=== PATIENT | female | born 1955 | race Two or more races ===

== ENCOUNTER → 2024-08-09 | Outpatient (CLI) | payer MEDICARE, MEDICAID, SELFPAY ==
[2024-08-09 08:48] LABS: Glucose Estimated Average 146 mg/dL (80-131); Hemoglobin A1C 6.7 % Hgb (4.8-6.0)
[2024-08-09 08:54] LABS: Alanine Aminotransferase 31 U/L (10-49); Albumin, Serum 4.2 gm/dL (3.4-4.8); Albumin/Globulin Ratio 1.4 (1.2-2.2); Alkaline Phosphatase 101 U/L (46-116); Anion Gap 11 (7-16); Aspartate Amino Transferase 32 U/L (0-34); BUN/Creatinine Ratio 32 Ratio (12-20); Bilirubin,Total 0.6 mg/dL (0.3-1.2); Blood Urea Nitrogen 19 mg/dL (9-23); Calcium 9.6 mg/dL (8.3-10.6); Calcium (Corrected) 9.6 mg/dL (8.5-10.1); Carbon Dioxide 24.8 mMol/L (20.0-31.0); Cardiac Risk Estimate 3.9 RATIO (3.7-5.6); Chloride 105 mMol/L (98-107); Cholesterol 212 mg/dL (132-200); Creatinine (Component) 0.6 mg/dL (0.6-1.3); Globulin 2.9 gm/dL (2.3-3.5); Glucose 133 mg/dL (74-106); HDL Cholesterol 54 mg/dL (40-60); LDL Cholesterol,Calculated 121 mg/dL (0-130); Osmolality,Calculated 285 (275-295); Potassium 3.7 mMol/L (3.4-5.1); Sodium 141 mMol/L (136-145); Total Protein 7.1 gm/dL (5.7-8.2); Triglycerides 184 mg/dL (30-150); eGFR > 60 See Note
== END | disposition home or self-care (01) ==
PROVIDERS: PCP Internal Medicine; Referring Provider Internal Medicine; Visit Provider Internal Medicine
DX: I10 Essential (primary) hypertension (principal); E78.5 Hyperlipidemia, unspecified
CPT/HCPCS: 36415; 80053; 80061; 83036

== ENCOUNTER → 2024-11-09 | Outpatient (CLI) | payer MEDICARE, MEDICAID, SELFPAY ==
--- NOTE | 2024-11-09 09:45 | XR_ITS ---
Examination: Screening digital mammography, bilateral Computer aided detection 3-D breast Tomosynthesis, bilateral Date and time of exam: November 09, 2024 0923 hours Compared to mammograms dating to April 29, 2014 Indication: Screening Technique: Nonmagnified MLO, CC views of the breasts to been obtained, reconstructed from 3-D Tomosynthesis images. R2 computer aided detection program utilized for evaluation of suspicious masses and/or abnormal calcifications. 3-D Tomosynthesis images obtained. Findings: The breasts are heterogeneously dense, which may obscure small masses Numerous bilateral calcifications. 12 mm nodule with spiculated margins inner upper left breast Impression: BI-RADS Category 0: Incomplete: Need additional imaging evaluation 12 mm nodule with spiculated margins inner upper left breast, recommend follow-up spot tomographic views of this nodule as well as bilateral breast sonography to complete the workup
== END | disposition home or self-care (01) ==
PROVIDERS: PCP Internal Medicine; Referring Provider Internal Medicine; Visit Provider Internal Medicine
DX: Z12.31 Encounter for screening mammogram for malignant neoplasm of breast (principal); R92.8 Other abnormal and inconclusive findings on diagnostic imaging of breast; N63.22 Unspecified lump in the left breast, upper inner quadrant
CPT/HCPCS: 77063; 77067

== ENCOUNTER → 2024-11-30 | Outpatient (CLI) | payer MEDICARE, MEDICAID, SELFPAY ==
--- NOTE | 2024-11-30 10:00 | XR_ITS ---
Examination: Breast ultrasound complete, bilateral Date and time of exam: 11/30/2024 0949 hours INDICATIONS: Mammogram November 09, 2024 12 mm nodule spiculated margins inner upper left breast Technique: Real-time grayscale ultrasonographic imaging bilateral breasts, including all 4 quadrants as well as nipple retroareolar and axillary regions. Findings: Sonographic images right breast 4:00 cyst 5 x 5 mm 9:00 cyst 4 x 4 millimeter No solid nodules Sonographic images left breast 2:00 cyst 5 x 5 mm 3:00 calcification 3 mm 7:00 nodule indistinct margins, taller than wide, with shadowing, 9 x 8 x 13 mm IMPRESSION: BI-RADS Category 4: Suspicious for malignancy Suspicious mass 7:00 position left breast, biopsy is needed to exclude breast carcinoma, this mass is amenable to ultrasound-guided breast biopsy for diagnosis
--- NOTE | 2024-11-30 11:00 | XR_ITS ---
Examination: Diagnostic digital mammography, unilateral, LEFT Computer aided detection 3-D breast Tomosynthesis, unilateral Date and time of exam: November 30, 2024 1012 hours INDICATIONS: Mammogram November 09, 2024 12 mm nodule with spiculated margins inner left breast on the on the CC view Technique: Nonmagnified MLO, CC views of the left breast have been obtained, reconstructed from 3-D Tomosynthesis images. R2 computer aided detection program utilized for evaluation of suspicious masses and/or abnormal calcifications. 3-D Tomosynthesis images obtained. Findings: The breast is heterogeneously dense, which may obscure small masses Spiculated mass is confirmed on the spot compression CC view inner left breast, best depicted on the left breast sonogram today, 7:00 nodule taller than wide, 9 x 8 x 13 mm Impression: BI-RADS category 4: Suspicious for malignancy Suspicious mass 7:00 position left breast, best depicted on the left breast sonogram report today, biopsy is needed to exclude breast carcinoma, this mass is amenable to ultrasound-guided breast biopsy for diagnosis
== END | disposition home or self-care (01) ==
LOC: CDIM 09:28
PROVIDERS: PCP Internal Medicine; Referring Provider Internal Medicine; Visit Provider Internal Medicine
DX: N63.24 Unspecified lump in the left breast, lower inner quadrant (principal); N60.11 Diffuse cystic mastopathy of right breast; N60.02 Solitary cyst of left breast; N64.89 Other specified disorders of breast
CPT/HCPCS: 76641; 77061; 77065; G0279

== ENCOUNTER → 2024-12-11 | Outpatient (CLI) | payer MEDICARE, MEDICAID, SELFPAY ==
[2024-12-11 08:22] LABS: Collection Type, Urine Catheter
[2024-12-11 09:01] LABS: Basophils % (Auto) 1 % (0-2.5); Eosinophils # (Auto) 0.1 Thou/mm3 (0.0-0.5); Eosinophils % (Auto) 2 % (0-10); Hematocrit 39.1 % (36.0-46.0); Hemoglobin 13.9 g/dL (12.0-16.0); Immature Granulocytes % (Auto) 0 % (0-0); Immature Granulocytes Auto 0.01 Thou/mm3 (0.00-0.00); Lymphocytes # (Auto) 1.9 Thou/mm3 (1.0-4.8); Lymphocytes % (Auto) 32 % (10-50); Mean Corpuscular HGB Conc 35.5 g/dl (31.0-37.0); Mean Corpuscular Hemoglobin 30.5 pg (25.0-35.0); Mean Corpuscular Volume 86 fL (80-100); Monocytes # (Auto) 0.5 Thou/mm3 (0.0-0.8); Monocytes % (Auto) 9 % (0-12); Neutrophils # (Auto) 3.3 Thou/mm3 (1.8-7.7); Neutrophils % (Auto) 57 % (37-80); Nucleated Red Blood Cell % 0 /100 WBC (0); Platelet Count 255 Thou/mm3 (140-440); RDW Standard Deviation 38.7 fL (36.4-46.3); Red Blood Count 4.56 Miln/mm3 (4.00-5.20); White Blood Count 5.9 Thou/mm3 (3.6-11.0)
[2024-12-11 09:04] LABS: Bacteria,Urine Rare; Bilirubin,Urine Negative (Negative); Blood,Urine 3+ (Negative); Clarity,Urine Clear (Clear/Hazy); Color,Urine Yellow (Lt Yel-Yel); Glucose, Urine Negative (Negative); Ketones,Urine Negative (Negative); Leukocyte Esterase,Urine Positive (Negative); Nitrite,Urine Negative (Negative); Protein,Urine Trace (Neg - Trace); RBC,Urine 42 /hpf (0-3); Specific Gravity,Urine 1.024 (1.001-1.035); Squamous Epithelial Cell,Urine 2 /hpf (0-5); Urobilinogen,Urine Negative mg/dL (0.0-1.0); WBC,Urine 3 /hpf (0-5)
[2024-12-11 09:06] LABS: Glucose Estimated Average 117 mg/dL (80-131); Hemoglobin A1C 5.7 % Hgb (4.8-6.0)
[2024-12-11 09:12] LABS: Alanine Aminotransferase 23 U/L (10-49); Albumin, Serum 4.3 gm/dL (3.4-4.8); Albumin/Globulin Ratio 1.5 (1.2-2.2); Alkaline Phosphatase 98 U/L (46-116); Anion Gap 10 (7-16); Aspartate Amino Transferase 27 U/L (0-34); BUN/Creatinine Ratio 24 Ratio (12-20); Bilirubin,Total 0.7 mg/dL (0.3-1.2); Blood Urea Nitrogen 17 mg/dL (9-23); Calcium 9.4 mg/dL (8.3-10.6); Calcium (Corrected) 9.4 mg/dL (8.5-10.1); Carbon Dioxide 23.6 mMol/L (20.0-31.0); Cardiac Risk Estimate 3.3 RATIO (3.7-5.6); Chloride 106 mMol/L (98-107); Cholesterol 181 mg/dL (132-200); Creatinine (Component) 0.7 mg/dL (0.6-1.3); Globulin 2.9 gm/dL (2.3-3.5); Glucose 115 mg/dL (74-106); HDL Cholesterol 55 mg/dL (40-60); LDL Cholesterol,Calculated 100 mg/dL (0-130); Osmolality,Calculated 281 (275-295); Sodium 140 mMol/L (136-145); Total Protein 7.2 gm/dL (5.7-8.2); Triglycerides 128 mg/dL (30-150); eGFR > 60 See Note
[2024-12-11 09:23] LABS: Creatinine,Random Urine 128 mg/dL (30-125)
== END | disposition home or self-care (01) ==
PROVIDERS: PCP Internal Medicine; Referring Provider Internal Medicine; Visit Provider Internal Medicine
DX: E11.9 Type 2 diabetes mellitus without complications (principal); I10 Essential (primary) hypertension; E78.5 Hyperlipidemia, unspecified
CPT/HCPCS: 36415; 80053; 80061; 81001; 82570; 83036; 83735; 85025

== ENCOUNTER → 2025-01-15 | Outpatient (CLI) | payer MEDICARE, MEDICAID, SELFPAY ==
[2025-01-14 09:20] LABS: Basophils # (Auto) 0.0 Thou/mm3 (0.0-0.2); Basophils % (Auto) 1 % (0-2.5); Eosinophils # (Auto) 0.2 Thou/mm3 (0.0-0.5); Eosinophils % (Auto) 3 % (0-10); Hematocrit 38.7 % (36.0-46.0); Hemoglobin 13.2 g/dL (12.0-16.0); Immature Granulocytes Auto 0.01 Thou/mm3 (0.00-0.00); Lymphocytes # (Auto) 2.2 Thou/mm3 (1.0-4.8); Lymphocytes % (Auto) 37 % (10-50); Mean Corpuscular HGB Conc 34.1 g/dl (31.0-37.0); Mean Corpuscular Hemoglobin 30.4 pg (25.0-35.0); Mean Corpuscular Volume 89 fL (80-100); Monocytes # (Auto) 0.5 Thou/mm3 (0.0-0.8); Monocytes % (Auto) 9 % (0-12); Neutrophils # (Auto) 3.0 Thou/mm3 (1.8-7.7); Neutrophils % (Auto) 51 % (37-80); Nucleated Red Blood Cell # 0.00 Thou/mm3 (0.00-0.00); Nucleated Red Blood Cell % 0 /100 WBC (0); Platelet Count 275 Thou/mm3 (140-440); RDW Standard Deviation 40.7 fL (36.4-46.3); Red Blood Count 4.34 Miln/mm3 (4.00-5.20); White Blood Count 6.0 Thou/mm3 (3.6-11.0)
[2025-01-14 10:11] LABS: INR 1.0 (0.9-1.3); Partial Thromboplastin Time 26.2 Seconds (22.0-36.0); Prothrombin Time 10.9 Seconds (9.0-12.2)
--- NOTE | 2025-01-15 10:30 | XR_ITS ---
Examinations: Ultrasound-guided percutaneous breast biopsy, left breast 7:00 nodule Left breast sonography limited INDICATIONS: Left breast sonogram November 30, 2024 BI-RADS 4 suspicious nodule 7:00 position left breast. Exam date and time: January 15, 2025 1007 hours. Informed consent provided. Technique: A timeout was completed verifying correct patient, procedure, site, positioning, and special equipment if applicable Informed consent provided. The patient was placed in a supine position for the breast biopsy. Sonographic images of the breast were performed for localization of the suspicious nodule The patient's breast was prepped and draped in sterile fashion. Maximum sterile barrier technique, hand hygiene, ultrasound sterile technique 1% lidocaine was used to anesthetize the skin and breast adjacent to the suspicious nodule. Utilizing ultrasonographic guidance, 8 core biopsies were obtained of the suspicious nodule utilizing an 18-gauge BioPince needle. The specimens appears satisfactory. US guided breast biopsy marker placement. Estimated blood loss 3 cc. The patient tolerated the procedure well and there were no complications. Impression: Successful ultrasound-guided percutaneous breast biopsy, left breast 7:00 nodule. Ultrasound guided breast biopsy marker placement.
== END | disposition home or self-care (01) ==
LOC: SDIM 01-17 07:27
PROVIDERS: Radiology Diagnostic Radiology; PCP Internal Medicine; Referring Provider Internal Medicine; Visit Provider Internal Medicine
DX: C50.312 Malignant neoplasm of lower-inner quadrant of left female breast (principal); Z17.0 Estrogen receptor positive status [ER+]; Z17.21 Progesterone receptor positive status; Z01.812 Encounter for preprocedural laboratory examination
CPT/HCPCS: 19083; 36415; 85025; 85610; 85730; A4648

== ENCOUNTER 2025-01-23 09:40 | Outpatient (RCR) | payer MEDICARE, MEDICAID, SELFPAY ==
--- NOTE | 2025-01-28 02:46 | CTCFLWUP_ITS ---
Patient: LACHO ANDERSON : 1955 Page 2 of 3 FOLLOW UP NOTE DATE OF SERVICE: 01/23/2025 NAME: LACHO ANDERSON ACCOUNT: [id number] : 1955 AGE: 70 INTERVAL HISTORY: Patient is here to establish care for her newly diagnosed breast cancer. Patient had ultrasound followed with a same-day biopsy and diagnosed with invasive lobular carcinoma ER/AZ positive HER2 status is pending. Patient have come here to establish care ONCOLOGY HISTORY: DIAGNOSIS: Invasive lobular carcinoma DATE OF DIAGNOSIS: 01/15/2025 STAGE/TNM: Pending TREATMENT HISTORY: Care?Plan Start?Date Cycle Day Intent HISTORY OF PRESENT ILLNESS: 01/15/2025 left breast biopsy showed invasive lobular carcinoma largest focus 0.8 cm ER more than 90% AZ more than 20% HER2 results pending Patient have various medical problems including hypertension hematuria depression coronary artery disease OTHER MEDICAL HISTORY/CONDITIONS: ALLERGIES BRONCHITIS DIABETES CHEST PAIN GALLBLADDER GLAUCOMA HIGH BLOOD PRESSURE GALLBLADDER CATARACT RIGHT SIDE HYSTRECTOMY FAMILY HISTORY: Patient?denies?family?cancer?history. SOCIAL HISTORY: Occupational?History:?RETIRED Education?Level:?Completed something less than 8th grade Marital?Status:? 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 Arimidex - 1 mg 1 tab Daily Medications Last Reconciled by Eryn Harrington LVN on 01/24/2025 ALLERGIES: PENICILLAMINE REVIEW OF SYSTEMS: A complete 14-point review of systems was performed and is negative except as noted in interval history. PHYSICAL EXAMINATION: VITAL SIGNS: B/P?144/74, Height?63.75?inches Weight?175?lbs PAIN: 5 - Between moderate and severe pain ECOG Performance Status: 0 - Asymptomatic and fully active GENERAL APPEARANCE: Appears well, in no apparent distress, appropriately interactive. HEENT: Normocephalic, no temporal wasting, normal conjunctiva, no scleral icterus, normal hearing, lips without lesions, neck normal range of motion. CARDIOVASCULAR: Not assessed. PULMONARY: Normal respiratory effort, no respiratory distress or use of accessory muscles, speaking in full sentences, no tachypnea. EXTREMITIES: No pedal edema or cyanosis. SKIN: Normal skin appearance. NEUROLOGIC: Alert and oriented x4. PSHYCHIATRIC: Appropriate affect, mood normal, behavior normal, intact thought and speech. No palpable mass in breast LABORATORY DATA: I have personally reviewed and interpreted each of the patient?s relevant lab tests, abnormal findings are below: Date ASSESSMENT/PLAN: Invasive lobular carcinoma left breast Patient want conservative breast surgery and if possible with implant Already have appointment with Dr. Evan Yeager Oncotype DX Will refer to radiation oncology once patient has completed surgery Will start on antiendocrine therapy while awaiting results and surgical consult Will order MRI breast for surgical planning ORDERS: Order # Description [id number] + MD Follow Up 4 Week + CA 15-3 [id number] MRI + Breast + With W/O Contrast [id number] RETURN TO CLINIC: I reviewed the diagnosis, prognosis, and recommended treatment/procedure options with the patient (and/or their legal chemical sales representative), including the potential benefits, risks, side effects and alternative therapies. We also discussed the option of no treatment and the possibility of clinical trial participation, if applicable. All questions were addressed, and they demonstrated understanding. They provided informed consent to proceed with the proposed plan of care. BILLING AND COMPLIANCE: I reviewed external records from providers outside my specialty as summarized above. I spent a total of 50 minutes on this patient?s care on the day of their visit excluding time spent related to any billed procedures. This time includes time spent with the patient as well as time spent documenting in the medical record, reviewing patients records and tests, obtaining history, placing orders, communicating with other healthcare professionals, counseling the patient, family or caregiver, and/or care coordination for the diagnoses above. Electronically Signed by: Ced Baez MD T: 2:44 AM CC: PCP: Mikayla Aguilar Referring: Mikayla gAuilar This document was completed utilizing speech recognition software. Grammatical errors, random word insertions, pronoun errors, and incomplete sentences are an occasional consequence of this system due to software limitations, ambient noise, and hardware issues. Any formal questions or concerns about the content, text or information contained within the body of this dictation should be directly addressed to the provider for clarification.
== END 2025-02-17 23:59 | disposition home or self-care (01) ==
LOC: SCTC 09:40
PROVIDERS: PCP Internal Medicine; Referring Provider Internal Medicine; Visit Provider Internal Medicine Hematology & Oncology
DX: C50.312 Malignant neoplasm of lower-inner quadrant of left female breast (principal); Z17.0 Estrogen receptor positive status [ER+]; Z17.21 Progesterone receptor positive status
CPT/HCPCS: 99213; G0463

== ENCOUNTER → 2025-01-23 | Outpatient (CLI) | payer MEDICARE, MEDICAID, SELFPAY ==
[2025-01-23 13:48] LABS: CA 15-3 10.4 U/mL (<32.4)
== END | disposition home or self-care (01) ==
PROVIDERS: PCP Internal Medicine; Referring Provider Internal Medicine Hematology & Oncology; Visit Provider Internal Medicine Hematology & Oncology
DX: C50.912 Malignant neoplasm of unspecified site of left female breast (principal)
CPT/HCPCS: 36415; 86300

== ENCOUNTER → 2025-02-15 | Outpatient (CLI) | payer MEDICARE, MEDICAID, SELFPAY ==
[2025-02-15 09:34] LABS: Alanine Aminotransferase 24 U/L (10-49); Albumin, Serum 4.3 gm/dL (3.4-4.8); Albumin/Globulin Ratio 1.6 (1.2-2.2); Alkaline Phosphatase 97 U/L (46-116); Anion Gap 11 (7-16); Aspartate Amino Transferase 27 U/L (0-34); BUN/Creatinine Ratio 27 Ratio (12-20); Bilirubin,Total 0.6 mg/dL (0.3-1.2); Blood Urea Nitrogen 19 mg/dL (9-23); Calcium 10.1 mg/dL (8.3-10.6); Calcium (Corrected) 10.1 mg/dL (8.5-10.1); Carbon Dioxide 25.7 mMol/L (20.0-31.0); Cardiac Risk Estimate 3.7 RATIO (3.7-5.6); Chloride 106 mMol/L (98-107); Cholesterol 194 mg/dL (132-200); Creatinine (Component) 0.7 mg/dL (0.6-1.3); Globulin 2.7 gm/dL (2.3-3.5); Glucose 105 mg/dL (74-106); HDL Cholesterol 53 mg/dL (40-60); LDL Cholesterol,Calculated 113 mg/dL (0-130); Osmolality,Calculated 287 (275-295); Potassium 4.5 mMol/L (3.4-5.1); Sodium 143 mMol/L (136-145); Total Protein 7.0 gm/dL (5.7-8.2); Triglycerides 138 mg/dL (30-150); eGFR > 60 See Note
[2025-02-15 09:37] LABS: Basophils # (Auto) 0.0 Thou/mm3 (0.0-0.2); Basophils % (Auto) 1 % (0-2.5); Eosinophils # (Auto) 0.1 Thou/mm3 (0.0-0.5); Eosinophils % (Auto) 2 % (0-10); Hematocrit 40.1 % (36.0-46.0); Hemoglobin 13.7 g/dL (12.0-16.0); Immature Granulocytes Auto 0.01 Thou/mm3 (0.00-0.00); Lymphocytes # (Auto) 2.2 Thou/mm3 (1.0-4.8); Lymphocytes % (Auto) 40 % (10-50); Mean Corpuscular HGB Conc 34.2 g/dl (31.0-37.0); Mean Corpuscular Hemoglobin 30.5 pg (25.0-35.0); Mean Corpuscular Volume 89 fL (80-100); Monocytes # (Auto) 0.5 Thou/mm3 (0.0-0.8); Monocytes % (Auto) 9 % (0-12); Neutrophils # (Auto) 2.7 Thou/mm3 (1.8-7.7); Neutrophils % (Auto) 48 % (37-80); Nucleated Red Blood Cell # 0.00 Thou/mm3 (0.00-0.00); Nucleated Red Blood Cell % 0 /100 WBC (0); Platelet Count 243 Thou/mm3 (140-440); RDW Standard Deviation 39.8 fL (36.4-46.3); Red Blood Count 4.49 Miln/mm3 (4.00-5.20); White Blood Count 5.6 Thou/mm3 (3.6-11.0)
[2025-02-15 09:55] LABS: Glucose Estimated Average 131 mg/dL (80-131); Hemoglobin A1C 6.2 % Hgb (4.8-6.0)
[2025-02-15 10:43] LABS: Collection Type, Urine Clean Catch
[2025-02-15 11:38] LABS: Bilirubin,Urine Negative (Negative); Blood,Urine 3+ (Negative); Clarity,Urine Clear (Clear/Hazy); Color,Urine Yellow (Lt Yel-Yel); Creatinine MALB Rnd Ur 140 mg/dL (30-125); Glucose, Urine Negative (Negative); Ketones,Urine Negative (Negative); Leukocyte Esterase,Urine Positive (Negative); Microalbumin Creat Ratio 4 mg/gCrea (<30); Microalbumin, Random Urine 5 mg/L (0-300); Nitrite,Urine Negative (Negative); PH,Urine 6.5 (5.0-7.0); Protein,Urine Negative (Neg - Trace); RBC,Urine 165 /hpf (0-3); Specific Gravity,Urine 1.023 (1.001-1.035); Squamous Epithelial Cell,Urine 2 /hpf (0-5); Urobilinogen,Urine 4.0 mg/dL (0.0-1.0); WBC,Urine 3 /hpf (0-5)
== END | disposition home or self-care (01) ==
PROVIDERS: PCP Internal Medicine; Referring Provider Internal Medicine; Visit Provider Internal Medicine
DX: E11.9 Type 2 diabetes mellitus without complications (principal); I10 Essential (primary) hypertension; E78.5 Hyperlipidemia, unspecified
CPT/HCPCS: 36415; 80053; 80061; 81001; 82043; 82570; 83036; 85025

== ENCOUNTER → 2025-02-25 | Outpatient (CLI) | payer OTHER, SELFPAY ==
[2025-02-25 08:13] VITALS: BMI 30.7
[2025-02-25 10:31] LABS: Basophils # (Auto) 0.0 Thou/mm3 (0.0-0.2); Basophils % (Auto) 1 % (0-2.5); Eosinophils # (Auto) 0.1 Thou/mm3 (0.0-0.5); Eosinophils % (Auto) 3 % (0-10); Hematocrit 38.6 % (36.0-46.0); Hemoglobin 13.1 g/dL (12.0-16.0); Immature Granulocytes Auto 0.01 Thou/mm3 (0.00-0.00); Lymphocytes # (Auto) 2.1 Thou/mm3 (1.0-4.8); Lymphocytes % (Auto) 40 % (10-50); Mean Corpuscular HGB Conc 33.9 g/dl (31.0-37.0); Mean Corpuscular Hemoglobin 30.4 pg (25.0-35.0); Mean Corpuscular Volume 90 fL (80-100); Monocytes # (Auto) 0.8 Thou/mm3 (0.0-0.8); Monocytes % (Auto) 16 % (0-12); Neutrophils # (Auto) 2.2 Thou/mm3 (1.8-7.7); Neutrophils % (Auto) 41 % (37-80); Nucleated Red Blood Cell # 0.00 Thou/mm3 (0.00-0.00); Nucleated Red Blood Cell % 0 /100 WBC (0); Platelet Count 213 Thou/mm3 (140-440); RDW Standard Deviation 41.2 fL (36.4-46.3); Red Blood Count 4.31 Miln/mm3 (4.00-5.20); White Blood Count 5.2 Thou/mm3 (3.6-11.0)
[2025-02-25 10:41] LABS: INR 1.0 (0.9-1.3); Partial Thromboplastin Time 25.6 Seconds (22.0-36.0); Prothrombin Time 10.6 Seconds (9.0-12.2)
[2025-02-25 10:43] LABS: Alanine Aminotransferase 35 U/L (10-49); Albumin, Serum 4.2 gm/dL (3.4-4.8); Albumin/Globulin Ratio 1.5 (1.2-2.2); Alkaline Phosphatase 99 U/L (46-116); Anion Gap 12 (7-16); Aspartate Amino Transferase 31 U/L (0-34); BUN/Creatinine Ratio 16 Ratio (12-20); Bilirubin,Total 0.3 mg/dL (0.3-1.2); Blood Urea Nitrogen 11 mg/dL (9-23); Calcium 9.5 mg/dL (8.3-10.6); Calcium (Corrected) 9.5 mg/dL (8.5-10.1); Carbon Dioxide 24.2 mMol/L (20.0-31.0); Chloride 107 mMol/L (98-107); Creatinine (Component) 0.7 mg/dL (0.6-1.3); Estimated Creatinine Clearance 76.5 mL/min (>60); Globulin 2.8 gm/dL (2.3-3.5); Glucose 107 mg/dL (74-106); Osmolality,Calculated 284 (275-295); Potassium 4.0 mMol/L (3.4-5.1); Sodium 143 mMol/L (136-145); Total Protein 7.0 gm/dL (5.7-8.2); eGFR > 60 See Note
[2025-02-25 10:46] LABS: COVID-19 Antigen (In-House) Positive (Negative)
--- NOTE | 2025-02-25 10:59 | SUR.PREOP ---
Pt complained of headache and congestion, Pt covid test came back positive, Dr Gordon'nate MA notified.
--- NOTE | 2025-03-15 | XR_ITS ---
Examination: Mammogram breast tissue specimen TECHNIQUE: Single mammographic specimen image Date and time: March 15, 2025 1358 hours INDICATIONS: Postop excision biopsy positive lesion 7:00 position left breast today FINDINGS: Breast biopsy marker and the nodule in the center of the breast tissue specimen with margins IMPRESSION: Breast biopsy marker and the nodule in the center the breast tissue specimen with margins
== END | disposition home or self-care (01) ==
LOC: SLAB 03-14 07:08
PROVIDERS: Anesthesiology; Family Provider Surgery; PCP Internal Medicine; Referring Provider Surgery; Visit Provider Surgery
DX: Z01.812 Encounter for preprocedural laboratory examination (principal); C50.912 Malignant neoplasm of unspecified site of left female breast
CPT/HCPCS: 36415; 80053; 85025; 85610; 85730; 87811

== ENCOUNTER 2025-03-04 11:35 | Outpatient (RCR) | payer MEDICARE, SELFPAY ==
--- NOTE | 2025-03-04 12:36 | CTCFLWUP_ITS ---
Patient: LACHO ANDERSON : 1955 Page 2 of 3 FOLLOW UP NOTE DATE OF SERVICE: 03/04/2025 NAME: LACHO ANDERSON ACCOUNT: [id number] : 1955 AGE: 70 INTERVAL HISTORY: Patient is here to establish care for her newly diagnosed breast cancer. Patient had ultrasound followed with a same-day biopsy and diagnosed with invasive lobular carcinoma ER/CT positive HER2 status is pending. Patient is scheduled for lumpectomy on 03/15/2024 ONCOLOGY HISTORY: DIAGNOSIS: Invasive lobular carcinoma DATE OF DIAGNOSIS: 01/15/2025 STAGE/TNM: Pending TREATMENT HISTORY: Care?Plan Start?Date Cycle Day Intent HISTORY OF PRESENT ILLNESS: 01/15/2025 left breast biopsy showed invasive lobular carcinoma largest focus 0.8 cm ER more than 90% CT more than 20% HER2 results pending Patient have various medical problems including hypertension hematuria depression coronary artery disease OTHER MEDICAL HISTORY/CONDITIONS: ALLERGIES BRONCHITIS DIABETES CHEST PAIN GALLBLADDER GLAUCOMA HIGH BLOOD PRESSURE GALLBLADDER CATARACT RIGHT SIDE HYSTRECTOMY FAMILY HISTORY: Patient?denies?family?cancer?history. SOCIAL HISTORY: Occupational?History:?RETIRED Education?Level:?Completed something less than 8th grade Marital?Status:? 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 Arimidex - 1 mg 1 tab Daily 2. atorvastatin - 10 mg 1 tab Daily 3. valsartan - 40 mg 1 tab Daily Medications Last Reconciled by Isabella Chapman MA on 03/04/2025 ALLERGIES: PENICILLAMINE REVIEW OF SYSTEMS: A complete 14-point review of systems was performed and is negative except as noted in interval history. PHYSICAL EXAMINATION: VITAL SIGNS: Temperature?99.3, B/P?130/80, Oxygen?Saturation?96% Weight?172?lbs PAIN: 0 - No pain ECOG Performance Status: 0 - Asymptomatic and fully active GENERAL APPEARANCE: Appears well, in no apparent distress, appropriately interactive. HEENT: Normocephalic, no temporal wasting, normal conjunctiva, no scleral icterus, normal hearing, lips without lesions, neck normal range of motion. CARDIOVASCULAR: Not assessed. PULMONARY: Normal respiratory effort, no respiratory distress or use of accessory muscles, speaking in full sentences, no tachypnea. EXTREMITIES: No pedal edema or cyanosis. SKIN: Normal skin appearance. NEUROLOGIC: Alert and oriented x4. PSHYCHIATRIC: Appropriate affect, mood normal, behavior normal, intact thought and speech. No palpable mass in breast LABORATORY DATA: I have personally reviewed and interpreted each of the patient?s relevant lab tests, abnormal findings are below: Date 02/15/25 02/25/25 ??WHITE?BLOOD?COUNT?(Thou/mm3) 5.6 5.2 ??RED?BLOOD?COUNT?(Miln/mm3) 4.49 4.31 ??HEMOGLOBIN?(gm/dl) 13.7 13.1 ??HEMATOCRIT?(%) 40.1 38.6 ??PLATELET?COUNT?(Thou/mm3) 243 213 ??NEUTROPHILS?%,?AUTO?(%) 48 41 ??LYMPH?%,?AUTO?(%) 40 40 ??NEUTROPHILS,?AUTO?(Thou/mm3) 2.7 2.2 ??GLUCOSE,RANDOM?(mg/dL) 105 107?H ??BLOOD?UREA?NITROGEN?(mg/dL) 19 11 ??CREATININE?(mg/dL) 0.70 0.70 ??SODIUM?(mmol/L) 143 143 ??POTASSIUM?(mmol/L) 4.5 4.0 ??CHLORIDE?(mmol/L) 106 107 ??CrCl?(CandG)?(ml/min) 78.90 78.90 ??AST/SGOT?(Unit/L) 27 31 ??ALT/SGPT?(Unit/L) 24 35 ??ALKALINE?PHOSPHATASE?(Unit/L) 97 99 ??BILIRUBIN,?TOTAL?(mg/dL) 0.6 0.3 ??PROTEIN?TOTAL?(gm/dl) 7.0 7.0 ??ALBUMIN,?SERUM?(gm/dl) 4.3 4.2 ??GLOBULIN?(gm/dl) 2.7 2.8 ??ALBUMIN/GLOBULIN?RATIO 1.6 1.5 ??CALCIUM,?SERUM?(mg/dL) 10.1 9.5 ??CALCIUM?SERUM?(CORRECTED)?(mg/dL) 10.1 9.5 ASSESSMENT/PLAN: Invasive lobular carcinoma left breast Patient want conservative breast surgery and if possible with implant Already have appointment with Dr. Evan Yeager Oncotype DX Will refer to radiation oncology once patient has completed surgery Cont antiendocrine therapy while awaiting results and surgery MRI already completed ORDERS: Order # Description [id number] MD Follow Up 4 Week + RETURN TO CLINIC: I reviewed the diagnosis, prognosis, and recommended treatment/procedure options with the patient (and/or their legal field representatives director), including the potential benefits, risks, side effects and alternative therapies. We also discussed the option of no treatment and the possibility of clinical trial participation, if applicable. All questions were addressed, and they demonstrated understanding. They provided informed consent to proceed with the proposed plan of care. BILLING AND COMPLIANCE: I reviewed external records from providers outside my specialty as summarized above. I spent a total of 50 minutes on this patient?s care on the day of their visit excluding time spent related to any billed procedures. This time includes time spent with the patient as well as time spent documenting in the medical record, reviewing patients records and tests, obtaining history, placing orders, communicating with other healthcare professionals, counseling the patient, family or caregiver, and/or care coordination for the diagnoses above. Electronically Signed by: Ced Baez MD T: 12:34 PM CC: PCP: Mikayla Aguilar Referring: Mikayla Aguilar This document was completed utilizing speech recognition software. Grammatical errors, random word insertions, pronoun errors, and incomplete sentences are an occasional consequence of this system due to software limitations, ambient noise, and hardware issues. Any formal questions or concerns about the content, text or information contained within the body of this dictation should be directly addressed to the provider for clarification.
== END 2025-03-19 23:59 | disposition home or self-care (01) ==
LOC: SCTC 11:35
PROVIDERS: PCP Internal Medicine; Referring Provider Internal Medicine; Visit Provider Internal Medicine Hematology & Oncology
DX: C50.312 Malignant neoplasm of lower-inner quadrant of left female breast (principal); Z17.0 Estrogen receptor positive status [ER+]; Z17.21 Progesterone receptor positive status; Z79.811 Long term (current) use of aromatase inhibitors
CPT/HCPCS: 99212; G0463

== ENCOUNTER 2025-03-15 06:25 | Day surgery (SDC) | payer OTHER, SELFPAY ==
[2025-03-13 09:30] VITALS: BMI 31.3
[2025-03-13 10:57] LABS: Basophils # (Auto) 0.0 Thou/mm3 (0.0-0.2); Basophils % (Auto) 1 % (0-2.5); Eosinophils # (Auto) 0.1 Thou/mm3 (0.0-0.5); Eosinophils % (Auto) 1 % (0-10); Hematocrit 38.6 % (36.0-46.0); Hemoglobin 13.4 g/dL (12.0-16.0); Immature Granulocytes Auto 0.02 Thou/mm3 (0.00-0.00); Lymphocytes # (Auto) 2.6 Thou/mm3 (1.0-4.8); Lymphocytes % (Auto) 40 % (10-50); Mean Corpuscular HGB Conc 34.7 g/dl (31.0-37.0); Mean Corpuscular Hemoglobin 30.8 pg (25.0-35.0); Mean Corpuscular Volume 89 fL (80-100); Monocytes # (Auto) 0.5 Thou/mm3 (0.0-0.8); Monocytes % (Auto) 8 % (0-12); Neutrophils # (Auto) 3.3 Thou/mm3 (1.8-7.7); Neutrophils % (Auto) 50 % (37-80); Nucleated Red Blood Cell # 0.00 Thou/mm3 (0.00-0.00); Nucleated Red Blood Cell % 0 /100 WBC (0); Platelet Count 254 Thou/mm3 (140-440); RDW Standard Deviation 39.3 fL (36.4-46.3); Red Blood Count 4.35 Miln/mm3 (4.00-5.20); White Blood Count 6.6 Thou/mm3 (3.6-11.0)
[2025-03-13 11:01] LABS: INR 1.0 (0.9-1.3); Partial Thromboplastin Time 25.9 Seconds (22.0-36.0); Prothrombin Time 11.0 Seconds (9.0-12.2)
[2025-03-13 11:05] LABS: Alanine Aminotransferase 27 U/L (10-49); Albumin, Serum 4.7 gm/dL (3.4-4.8); Albumin/Globulin Ratio 1.5 (1.2-2.2); Alkaline Phosphatase 92 U/L (46-116); Anion Gap 10 (7-16); Aspartate Amino Transferase 35 U/L (0-34); BUN/Creatinine Ratio 21 Ratio (12-20); Bilirubin,Total 0.6 mg/dL (0.3-1.2); Blood Urea Nitrogen 15 mg/dL (9-23); Calcium 10.3 mg/dL (8.3-10.6); Calcium (Corrected) 10.3 mg/dL (8.5-10.1); Carbon Dioxide 22.8 mMol/L (20.0-31.0); Chloride 108 mMol/L (98-107); Creatinine (Component) 0.7 mg/dL (0.6-1.3); Estimated Creatinine Clearance 74.2 mL/min (>60); Globulin 3.2 gm/dL (2.3-3.5); Glucose 105 mg/dL (74-106); Osmolality,Calculated 282 (275-295); Potassium 4.0 mMol/L (3.4-5.1); Sodium 141 mMol/L (136-145); Total Protein 7.9 gm/dL (5.7-8.2); eGFR > 60 See Note
[2025-03-15] VITALS (18 sets, daily range): BP systolic 106–177; BP diastolic 58–88; PULSE 65–95; RESP 12–23; TEMP 36.2–36.8; O2SAT 87–99; BMI 30.4
--- NOTE | 2025-03-15 07:20 | SUR.PREOP ---
Patient expressed gratitude for prayer before their procedure.
--- NOTE | 2025-03-15 09:00 | XR_ITS ---
Examination: Preop ultrasound-guided needle localization biopsy positive lesion left breast 7:00 position Left breast sonography limited Date and time: March 15, 2025, 10:00 AM INDICATIONS: Biopsy positive for carcinoma lesion on ultrasound guided biopsy left breast 7:00 lesion January 15, 2025, preop surgical excision today TECHNIQUE AND FINDINGS: Informed consent provided. Timeout performed. Skin prepped over the left breast and sterile drape applied hand hygiene ultrasound sterile technique 1% lidocaine administered for local anesthesia Utilizing ultrasonographic guidance 5 cm Kopans needle placed within the biopsy positive carcinoma lesion 7:00 position left breast 1 cc methylene blue introduced Hookwire introduced and needle withdrawn Estimated blood loss 2 cc IMPRESSION: Successful ultrasound-guided preoperative localization biopsy positive lesion left breast 7:00 position
--- NOTE | 2025-03-15 09:00 | XR_ITS ---
Examination: Nuclear medicine lymph glands imaging [place] lymph node study Date and time: March 15, 2025 0900 hours INDICATIONS: Preop excision biopsy positive lesion 7:00 position left breast, left node dissection TECHNIQUE AND FINDINGS: Informed consent provided. Timeout performed. Skin prepped over the left breast and sterile drape applied hand hygiene 1% lidocaine administered subareolar for local anesthesia 1.9 mCi technetium 99m filtered sulfur colloid introduced left breast subareolar, no imaging Estimated blood loss 0 cc IMPRESSION: Successful sentinel lymph node study as above
--- NOTE | 2025-03-15 14:43 | ESOP_ITS ---
Date of Procedure 03/15/25 Pre Op Diagnosis Infiltrating lobular carcinoma of the left breast at 7 o'clock position Post Op Diagnosis Same Procedure Guidewire localization and partial mastectomy of the left breast cancer [place] node biopsy of the left axilla Findings Patient was found to have 1 lymph node in the left axilla which was radioactive and showed uptake Procedure Description After the patient was taken to the x-ray suite she had ultrasound-guided localization with a guidewire. This guidewire was inserted lateral to medial to our 7 o'clock position. She then had technetium isotope for sentinel node biopsy. She was brought to the treatment room and given LMA anesthesia. Then the upper chest and left breast and axilla were washed with ChloraPrep solution and draped in a sterile manner. The left arm was wrapped up in the sterile sleeve. Timeout was performed. Using a neoprobe I identified an uptake at the injection site as well as over the left axilla. I made an incision for about 5 cm in the axilla along the skin crease and dissected the subcutaneous tissue. I was able to see 1 lymph node that showed radioactivity. This was removed without much difficulty. Then I used the neoprobe in search of any additional node and none was found. I also palpated the left axilla for any additional lymph node and none was felt. Then the subcutaneous tissue was closed in 2 layers using 3-0 chromic and injected the skin edges with half percent Marcaine. Skin was closed with 4-0 Monocryl subcuticular stitch. Next the attention was turned down to the left breast mass. Using a guidewire which was inserted at the inferior portion of the breast from lateral to medial I made a radial incision for about 5 cm. Subcutaneous tissue was divided and the breast tissue was reached. The methylene blue stain was identified and I removed a fair amount of tissue surrounding the guidewire tip on the methylene blue stained tissues. Basically patient had quadrantectomy on the specimen was x-rayed which showed that the marker left at the time of biopsy was seen in the center of the specimen. I was also able to feel the mass after he removed it even though it was not felt preoperatively when it was in the breast. The x-ray of the specimen showed additional good margins surrounding the lesion. However I took some other additional margin especially on the lateral side and sent it for histopathology. Then the bleeding points were controlled with cautery and some of them were suture-ligated with 3-0 chromic. I left a #10 round Ollie- Murdock and brought it through the inferior portion of the breast and attached it to the skin with a 3-0 silk. The subcutaneous tissue was closed with 3-0 chromic and the skin was approximated with 4-0 Monocryl. Dressing was applied with Adaptic and fluff and compression with extra-large breast binder. Patient tolerated procedure well Anesthesia other Pathology / specimen Other (1. [place] node biopsy left axilla, #2 breast cancer with a guidewire, #3 additional margin) Estimated Blood Loss 150 Condition Stable Disposition PACU Surgeon Isela Fitch MD Surgical Staff Operation Date: 03/15/25 13:15 Case Staff EXPLOSIVE ORDNANCE DISPOSAL TECHNICIAN: Alfonso Hartley RN First Assistant: Mitchell Glass
--- NOTE | 2025-03-15 15:16 | SUR.PHASEI ---
1446: Pt received in [facility] via gurney. Report from Jorgito GODFREY and Andrew MICHAEL. Pt obtunded. Resp even, unlabored. VS stable. Dressing to left breast dry, clean, intact. ARLETH drain has small amount sanquinous drainage and is compressed.
[2025-03-15] MEDS: ONDANSETRON INJ 2 MG/ML INJ 2 ML 4 MG IVP (15:50)
--- NOTE | 2025-03-15 15:55 | SUR.PHASEI ---
1510: Pt has been resting with no complaints voiced. Resp even, unlabored. VS stable. Dressing to left breast remains dry, clean, intact. ARLETH has small amount of sanguinous drainage and is compressed. No complaints of pain.
--- NOTE | 2025-03-15 16:40 | SUR.PHASEII ---
1640: daughter at the bedside.
--- NOTE | 2025-03-15 16:40 | SUR.PHASEII ---
1640: received report from BEKAH Roach. pt alert and oriented. no s/s of pain or discomfort. no s/s of resp. distress or discomfort. dressing to left breast clean, dry and intact, brest binder in place. ARLETH drain in place with serosanguinous blood noted.
--- NOTE | 2025-03-15 16:45 | SUR.PHASEII ---
1550: Pt remains very sedated. Is awake with nausea. Received new order for Zofran which was given at this time. Daughter at bedside. 1610: Pt stated nausea still present but is subsiding. VS stable. 02 sats increased but continues to require 02 @ 2L/min via NC. 1640: Report to Sherri GODFREY.
--- NOTE | 2025-03-15 16:55 | SUR.PHASEII ---
1655: discharge instructions given to Tequila-daughter and pt, all questions were answered.
--- NOTE | 2025-03-15 17:00 | SUR.PHASEII ---
1700: able to tolerate ice chiops without any issues.
--- NOTE | 2025-03-15 17:05 | SUR.PHASEII ---
1705: incentive spirometer used and tolerate up to 1000 ml.
--- NOTE | 2025-03-15 17:35 | SUR.PHASEII ---
1735: two daughters at the bedside. pt alert and oriented. no s/s of resp. distress or discomfort. denies any pain or discomfort.
--- NOTE | 2025-03-15 17:44 | SUR.PHASEII ---
1744: pt have small amount of emesis yellow color.
--- NOTE | 2025-03-15 18:18 | SUR.PHASEII ---
1818: pt discharge to home via wheelchair. pt alert and oriented. denies any pain or discomfort. no s/s of resp. distress or discomfort. dressing to left breast with ARLETH drain clean, dry and intact. ARLETH drain output of 30 ml serosanguineous color of the blood. breast binder in place. all belongings brought given back to patient.
== END 2025-03-15 18:18 | disposition home or self-care (01) ==
PROVIDERS: PCP Internal Medicine; Referring Provider Surgery; Visit Provider Surgery
PROC: (CPT 19301; principal; 2025-03-15 13:00)
DX: C50.312 Malignant neoplasm of lower-inner quadrant of left female breast (principal); I10 Essential (primary) hypertension; I25.10 Atherosclerotic heart disease of native coronary artery without angina pectoris; Z95.5 Presence of coronary angioplasty implant and graft; Z79.899 Other long term (current) drug therapy; C77.3 Secondary and unspecified malignant neoplasm of axilla and upper limb lymph nodes
CPT/HCPCS: 19301; 38525; 19285; 38900; 36415; 80053; 85025; 85610; 85730; A4217; A4648; A4649; A9541; J2405; J3490

== ENCOUNTER → 2025-04-02 | Outpatient (CLI) | payer MEDICARE, SELFPAY ==
--- NOTE | 2025-04-02 12:00 | XR_ITS ---
EXAMINATION: MRI bilateral breast without intravenous contrast MRI bilateral breasts with intravenous contrast Date and time: April 02, 2025, 1305 hours, comparison ultrasound-guided left breast biopsy 7:00 nodule January 15, 2025, positive for carcinoma, spiculated mass inner left breast cc view on mammogram November 30, 2024, post op excision biopsy positive lesion 7 o'clock position left breast 03/15/2025, undergoing hormone replacement Date and time: April 02, 2025, 1305 hours TECHNIQUE AND FINDINGS: Bilateral breast MRI images obtained pre and post intravenous administration of 15 cc gadolinium Skin thickening left breast, architectural distortion lower outer left breast consistent with patient's history excision 7:00 lesion left breast No chest wall mass or pathologic lymphadenopathy No current dominant breast lesion noted Addendum will be made when the Image [employer] software is available for interpretation IMPRESSION: BI-RADS Category 2: Benign findings Recommend 6-month follow-up diagnostic mammography and bilateral breast sonography
== END | disposition home or self-care (01) ==
LOC: SMRI 11:09
PROVIDERS: PCP Internal Medicine; Referring Provider Internal Medicine Hematology & Oncology; Visit Provider Internal Medicine Hematology & Oncology
DX: R92.8 Other abnormal and inconclusive findings on diagnostic imaging of breast (principal); C50.912 Malignant neoplasm of unspecified site of left female breast
CPT/HCPCS: 77049; A9577; C8908

== ENCOUNTER 2025-04-09 09:54 | Outpatient (RCR) | payer MEDICARE, SELFPAY | END 2025-04-19 23:59 | disposition home or self-care (01) | LOC: SCTC 09:54 | PROVIDERS: PCP Internal Medicine; Referring Provider Internal Medicine; Visit Provider Internal Medicine Hematology & Oncology | DX: C50.312 Malignant neoplasm of lower-inner quadrant of left female breast (principal); Z17.0 Estrogen receptor positive status [ER+]; Z17.22 Progesterone receptor negative status; Z17.32 Human epidermal growth factor receptor 2 negative status; Z90.12 Acquired absence of left breast and nipple; Z79.811 Long term (current) use of aromatase inhibitors | CPT/HCPCS: 99212; 99424; 99425; G0463 ==

== ENCOUNTER → 2025-04-09 | Outpatient (CLI) | payer MEDICARE, MEDICAID, SELFPAY ==
[2025-04-09 08:20] LABS: Collection Type, Urine Clean Catch
[2025-04-09 08:39] LABS: Basophils # (Auto) 0.0 Thou/mm3 (0.0-0.2); Basophils % (Auto) 1 % (0-2.5); Eosinophils # (Auto) 0.2 Thou/mm3 (0.0-0.5); Eosinophils % (Auto) 4 % (0-10); Hematocrit 37.1 % (36.0-46.0); Hemoglobin 12.7 g/dL (12.0-16.0); Immature Granulocytes Auto 0.01 Thou/mm3 (0.00-0.00); Lymphocytes # (Auto) 2.3 Thou/mm3 (1.0-4.8); Lymphocytes % (Auto) 41 % (10-50); Mean Corpuscular HGB Conc 34.2 g/dl (31.0-37.0); Mean Corpuscular Hemoglobin 30.3 pg (25.0-35.0); Mean Corpuscular Volume 89 fL (80-100); Monocytes # (Auto) 0.6 Thou/mm3 (0.0-0.8); Monocytes % (Auto) 12 % (0-12); Neutrophils # (Auto) 2.4 Thou/mm3 (1.8-7.7); Neutrophils % (Auto) 43 % (37-80); Nucleated Red Blood Cell # 0.00 Thou/mm3 (0.00-0.00); Nucleated Red Blood Cell % 0 /100 WBC (0); Platelet Count 247 Thou/mm3 (140-440); RDW Standard Deviation 40.1 fL (36.4-46.3); Red Blood Count 4.19 Miln/mm3 (4.00-5.20); White Blood Count 5.5 Thou/mm3 (3.6-11.0)
[2025-04-09 08:47] LABS: Bilirubin,Urine Negative (Negative); Blood,Urine 3+ (Negative); Clarity,Urine Clear (Clear/Hazy); Glucose, Urine Negative (Negative); Ketones,Urine Negative (Negative); Leukocyte Esterase,Urine Positive (Negative); Nitrite,Urine Negative (Negative); PH,Urine 6.5 (5.0-7.0); Protein,Urine Negative (Neg - Trace); RBC,Urine 63 /hpf (0-3); Specific Gravity,Urine 1.019 (1.001-1.035); Squamous Epithelial Cell,Urine 1 /hpf (0-5); Urobilinogen,Urine Negative mg/dL (0.0-1.0); WBC,Urine 2 /hpf (0-5)
[2025-04-09 08:51] LABS: Color,Urine Lt Yellow (Lt Yel-Yel)
[2025-04-09 08:53] LABS: Glucose Estimated Average 126 mg/dL (80-131); Hemoglobin A1C 6.0 % Hgb (4.8-6.0)
[2025-04-09 09:13] LABS: Creatinine MALB Rnd Ur 102 mg/dL (30-125); Microalbumin Creat Ratio 6 mg/gCrea (<30); Microalbumin, Random Urine 6 mg/L (0-300)
[2025-04-09 09:24] LABS: CA 15-3 10.0 U/mL (<32.4)
[2025-04-09 09:42] LABS: Alanine Aminotransferase 32 U/L (10-49); Alkaline Phosphatase 93 U/L (46-116); Anion Gap 12 (7-16); Aspartate Amino Transferase 36 U/L (0-34); BUN/Creatinine Ratio 17 Ratio (12-20); Bilirubin,Total 0.6 mg/dL (0.3-1.2); Blood Urea Nitrogen 10 mg/dL (9-23); Calcium 9.1 mg/dL (8.3-10.6); Carbon Dioxide 24.3 mMol/L (20.0-31.0); Cardiac Risk Estimate 3.4 RATIO (3.7-5.6); Chloride 107 mMol/L (98-107); Cholesterol 169 mg/dL (132-200); Creatinine (Component) 0.6 mg/dL (0.6-1.3); Glucose 113 mg/dL (74-106); HDL Cholesterol 50 mg/dL (40-60); LDL Cholesterol,Calculated 95 mg/dL (0-130); Osmolality,Calculated 284 (275-295); Phosphorous 4.0 mg/dL (2.4-5.1); Potassium 4.2 mMol/L (3.4-5.1); Sodium 143 mMol/L (136-145); Total Protein 7.0 gm/dL (5.7-8.2); Triglycerides 122 mg/dL (30-150); eGFR > 60 See Note
[2025-04-09 10:05] LABS: Albumin, Serum 4.4 gm/dL (3.4-4.8); Albumin/Globulin Ratio 1.7 (1.2-2.2); Calcium (Corrected) 9.1 mg/dL (8.5-10.1); Globulin 2.6 gm/dL (2.3-3.5)
== END | disposition home or self-care (01) ==
LOC: COPL 07:53
PROVIDERS: PCP Internal Medicine; Referring Provider Internal Medicine; Visit Provider Internal Medicine
DX: C50.312 Malignant neoplasm of lower-inner quadrant of left female breast (principal); E11.9 Type 2 diabetes mellitus without complications; I10 Essential (primary) hypertension; E78.5 Hyperlipidemia, unspecified
CPT/HCPCS: 36415; 80053; 80061; 81001; 82043; 82570; 83036; 84100; 85025; 86300

== ENCOUNTER 2025-05-08 09:41 | Outpatient (RCR) | payer MEDICARE, MEDICAID, SELFPAY ==
--- NOTE | 2025-05-08 10:57 | CTCFLWUP_ITS ---
Patient: LACHO ANDERSON : 1955 Page 2 of 2 FOLLOW UP NOTE DATE OF SERVICE: 05/08/2025 NAME: LACHO ANDERSON ACCOUNT: [id number] : 1955 AGE: 70 INTERVAL HISTORY: Patient had lumpectomy on 03/15/2024 which showed breast cancer ER positive , NM NEGAITVE, HER-2 NEGATIVE PATIENT had one lymph ndoe positive . Patient is complaining of pain in her left arm. Left arm is swollen. No redness. Pulses are intact. Plan is to send her to lymphedema clinic and continue Demadex. Patient's per Cigna score is low. ONCOLOGY HISTORY: ONCOLOGY HISTORY: DIAGNOSIS: Invasive lobular carcinoma DATE OF DIAGNOSIS: 01/15/2025 STAGE/TNM: Stage 11a TREATMENT HISTORY: Care?Plan Start?Date Cycle Day Intent HISTORY OF PRESENT ILLNESS: 01/15/2025 left breast biopsy showed invasive lobular carcinoma largest focus 0.8 cm ER more than 90% NM more than 20% HER2 results pending Patient have various medical problems including hypertension hematuria depression coronary artery disease OTHER MEDICAL HISTORY/CONDITIONS: ALLERGIES BRONCHITIS DIABETES CHEST PAIN GALLBLADDER GLAUCOMA HIGH BLOOD PRESSURE GALLBLADDER CATARACT RIGHT SIDE HYSTRECTOMY FAMILY HISTORY: Patient?denies?family?cancer?history. SOCIAL HISTORY: Occupational?History:?RETIRED Education?Level:?Completed something less than 8th grade Marital?Status:? 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 PAYING TELLER HISTORY: Menarche?-?Age:?15 Menopause:?1989 Hormone?Use:?MILD POST HYSTRECTOMY 1989 ONLY :?5 Live?Births:?5 Age?1st?:?19 MEDICATIONS: 1. Arimidex - 1 mg 1 tab Daily 2. atorvastatin - 10 mg 1 tab Daily 3. valsartan - 40 mg 1 tab Daily Medications Last Reconciled by Isabella Alvarado MD on 05/08/2025 ALLERGIES: PENICILLAMINE REVIEW OF SYSTEMS: A complete 14-point review of systems was performed and is negative except as noted in interval history. PHYSICAL EXAMINATION: VITAL SIGNS: Temperature?98.4, B/P?137/72, Oxygen?Saturation?96% Weight?175?lbs (Change?since?04/08/25:?0?lbs) PAIN: 0 - No pain ECOG Performance Status: 0 - Asymptomatic and fully active GENERAL APPEARANCE: Appears well, in no apparent distress, appropriately interactive. HEENT: Normocephalic, no temporal wasting, normal conjunctiva, no scleral icterus, normal hearing, lips without lesions, neck normal range of motion. CARDIOVASCULAR: Not assessed. PULMONARY: Normal respiratory effort, no respiratory distress or use of accessory muscles, speaking in full sentences, no tachypnea. EXTREMITIES: No pedal edema or cyanosis. SKIN: Normal skin appearance. NEUROLOGIC: Alert and oriented x4. PSHYCHIATRIC: Appropriate affect, mood normal, behavior normal, intact thought and speech. No palpable mass in breast LABORATORY DATA: I have personally reviewed and interpreted each of the patient?s relevant lab tests, abnormal findings are below: Date 03/13/25 04/09/25 ??WHITE?BLOOD?COUNT?(Thou/mm3) 6.6 5.5 ??RED?BLOOD?COUNT?(Miln/mm3) 4.35 4.19 ??HEMOGLOBIN?(gm/dl) 13.4 12.7 ??HEMATOCRIT?(%) 38.6 37.1 ??PLATELET?COUNT?(Thou/mm3) 254 247 ??NEUTROPHILS?%,?AUTO?(%) 50 43 ??LYMPH?%,?AUTO?(%) 40 41 ??NEUTROPHILS,?AUTO?(Thou/mm3) 3.3 2.4 ??GLUCOSE,RANDOM?(mg/dL) 105 113?H ??BLOOD?UREA?NITROGEN?(mg/dL) 15 10 ??CREATININE?(mg/dL) 0.70 0.60 ??SODIUM?(mmol/L) 141 143 ??POTASSIUM?(mmol/L) 4.0 4.2 ??CHLORIDE?(mmol/L) 108?H 107 ??CrCl?(CandG)?(ml/min) 78.24 92.05 ??AST/SGOT?(Unit/L) 35?H 36?H ??ALT/SGPT?(Unit/L) 27 32 ??ALKALINE?PHOSPHATASE?(Unit/L) 92 93 ??BILIRUBIN,?TOTAL?(mg/dL) 0.6 0.6 ??PROTEIN?TOTAL?(gm/dl) 7.9 7.0 ??ALBUMIN,?SERUM?(gm/dl) 4.7 4.4 ??GLOBULIN?(gm/dl) 3.2 2.6 ??ALBUMIN/GLOBULIN?RATIO 1.5 1.7 ??CALCIUM,?SERUM?(mg/dL) 10.3 9.1 ??CALCIUM?SERUM?(CORRECTED)?(mg/dL) 10.3?H 9.1 ASSESSMENT/PLAN: Invasive lobular carcinoma left breast s/p lumpectomy mri reviewed Progress Cassie score is less than 25 patient does not need chemotherapy Will start radiation Cont arimidex in mean time Patient can stop Arimidex while on radiation Advised to take calcium and vitamin D every day Refer to lymphedema clinic RTC in 3 months ORDERS: Order # Description [id number] Comprehensive Metabolic Panel - 12 + CBC with Auto Diff + CA 15-3 [id number] Follow Up 3 Months RETURN TO CLINIC: I reviewed the diagnosis, prognosis, and recommended treatment/procedure options with the patient (and/or their legal congressional representative), including the potential benefits, risks, side effects and alternative therapies. We also discussed the option of no treatment and the possibility of clinical trial participation, if applicable. All questions were addressed, and they demonstrated understanding. They provided informed consent to proceed with the proposed plan of care. BILLING AND COMPLIANCE: I reviewed external records from providers outside my specialty as summarized above. I spent a total of 50 minutes on this patient?s care on the day of their visit excluding time spent related to any billed procedures. This time includes time spent with the patient as well as time spent documenting in the medical record, reviewing patients records and tests, obtaining history, placing orders, communicating with other healthcare professionals, counseling the patient, family or caregiver, and/or care coordination for the diagnoses above. Electronically Signed by: Ced Baez MD T: 10:55 AM CC: PCP: Mikayla Aguilar Referring: Mikayla Aguilar This document was completed utilizing speech recognition software. Grammatical errors, random word insertions, pronoun errors, and incomplete sentences are an occasional consequence of this system due to software limitations, ambient noise, and hardware issues. Any formal questions or concerns about the content, text or information contained within the body of this dictation should be directly addressed to the provider for clarification.
== END 2025-05-19 23:59 | disposition home or self-care (01) ==
LOC: SCTC 09:41
PROVIDERS: PCP Internal Medicine; Referring Provider Internal Medicine; Visit Provider Internal Medicine Hematology & Oncology
DX: C50.312 Malignant neoplasm of lower-inner quadrant of left female breast (principal); Z17.0 Estrogen receptor positive status [ER+]; Z17.22 Progesterone receptor negative status; Z17.32 Human epidermal growth factor receptor 2 negative status; Z90.12 Acquired absence of left breast and nipple; Z79.811 Long term (current) use of aromatase inhibitors
CPT/HCPCS: 99212; G0463

== ENCOUNTER → 2025-05-14 | Outpatient (CLI) | payer MEDICARE, MEDICAID, SELFPAY ==
--- NOTE | 2025-05-14 | XR_ITS ---
EXAMINATION: Lumbar spine 3 views TECHNIQUE: AP lateral: Lateral lower lumbar spine 3 views Date and time: May 14, 2025, 0805 hours INDICATIONS: Lower back pain after injury 8 days ago. FINDINGS: Significant osteopenia No lumbar fracture No spondylolisthesis. Advanced degenerative disc disease L4-L5 IMPRESSION: Advanced degenerative disc disease L4-L5
== END | disposition home or self-care (01) ==
LOC: CDIM 07:34
PROVIDERS: PCP Internal Medicine; Referring Provider Orthopaedic Surgery; Visit Provider Orthopaedic Surgery
DX: M51.360 Other intervertebral disc degeneration, lumbar region with discogenic back pain only (principal)
CPT/HCPCS: 72100

== ENCOUNTER 2025-06-19 07:40 | Outpatient (RCR) | payer MEDICARE, MEDICAID, SELFPAY ==
--- NOTE | 2025-05-21 15:43 | CTCCONSULT_ITS ---
[facility] [place], [place] [address] Consultation Note Date: 05/21/2025 MR#: [id number] Name: LACHO ANDERSON : 1955 Dx: C50.312 Malignant neoplasm of lower-inner quadrant of left female breast Attending physician. Mikayla Aguilar MD Referring physician. Michell Baez MD Reason for consultation. Patient with invasive lobular left breast CA status post partial mastectomy sentinel lymph node dissection referred for postop radiation therapy. History of Present Illness: Patient is a 70-year-old lady who underwent left breast ultrasound with same-day biopsy revealing invasive lobular carcinoma ER/IN positive HER2/kurtis negative. Patient underwent left partial mastectomy and left sentinel biopsy performed by Dr. Evan Fitch MD on 03/15/2025. Final pathology invasive lobular carcinoma 1.7 x 1.2 x 1 cm single focus with surgical margins negative. ER positive IN negative HER2/kurtis negative Ki-67 low 5% 1 positive sentinel lymph node of 1 removed size of met 0.2 cm. [id number]. Pros Cassie score was 18 not needing chemo. Patient has been prescribed Arimidex by Dr. Baez. Patient now referred for radiation oncology consultation. Past Medical History: History of high blood pressure bronchitis diabetes gallbladder stones Meds. 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 CV: Well-healed scar left axilla and left inframammary region no sign of recurrence chest clear to auscultation ABD: Soft no organomegaly or tenderness EXT: No signs of clubbing or edema. Assessment: 1.Patient with stage IIA TicN1a ER positive IN negative HER2/kurtis negative Ki-67 low at 5%. Status post left partial mastectomy and 1 positive sentinel node.. 2. Pros Signa score 18, low risk not needing chemo patient on anastrozole prescribed by Dr. Baez. 3. 3 weeks course of radiation treated the entire left breast with 1 week E boost to the tumor site will be scheduled for patient. Side effects explained. 4. Thank you very much for allowing me to evaluate and manage this patient Cc: Jaida Fitch MD Electronically signed by: Ravi Mann MD, DABR 05/21/2025 3:41 PM
--- NOTE | 2025-05-21 15:44 | CTCTXPLN_ITS ---
[facility] [place] [address] [address] [place], [place] [address] Physician Clinical Treatment Planning Note Date of Service: 05/21/2025 Name: LACHO MONICA : 1955 The patient has agreed to proceed with Radiation therapy. Tests and supporting medical records were interpreted to assist in defining the tumor location and extent of disease. Further imaging will be necessary to contour and delineate the volume to which the XRT will be provided. A. Treatment Intent: Curative B. Modality: Mixed mode C. Requested Technique: 3D D. Treatment Site: Left breast E. Critical structures to be contoured on plan: F. In order to accomplish this plan, I am ordering/Prescribing the followin. Simulations (s) will be performed to accomplish a reproducible treatment position, to determine optimal treatment portals/beam arrangements, to design beam modifying devices and verify treatment portals on patient prior to the commencement of Radiation Therapy. Left breast 2. Devices; for immobilization and beam shaping: Vac-Catracho 3. CT Guidance for placement of XRT vazquez Scan area: 4. Portal images Frequency: 5. Invivo transit dose measurement once per week on all VMAT patients. 6. Special Physics Consult Requested for: 7. Other requests: G. Dose Objectives: Electronically signed by: Ravi Mann M.D. 05/21/2025 3:42 PM
--- NOTE | 2025-05-21 15:47 | CTCTXPLNST_ITS ---
Radiation Oncology Treatment Planning Sheet Name: LACHO ANDERSON MR#: [id number] : 1955 Dx: C50.312 Malignant neoplasm of lower-inner quadrant of left female breast Date of Service: 05/21/2025 Account #: ?? Pt Treatment Intent: curative palliative other: Stage: Procedure CPT # Ordered Spec. Procedure 20561 Silver Complex (set-up) 73113 L breast/E boost 2 Silver Simple 85505 1 IMRT Plan 43256 MLC Devices VMAT 55173 Silver 3 D 30455 1 TRTMT dev Complex 10597 Vaklok/2F/E boost 4 TRTMT dev simple 45713 1 Basic Delgado 67235 5 Special Dosimetry 75301 Spec Physics 97074 Port Films 19309 3 SRS Cranial/1FX 55762 SBR 5 FX or Less /ex: 5 = 5 fx 69482 IMRT Simple 06885 IMRT Complex 64777 IGRT 13203 Rad del Logan 6- 34616 Rad del [place] 11- 88946 5005 20 Cont Med Physics 88811 4 Treatment Planning 25400 1 Weekly Evaluation 98447 4 Rad del com 20 mev 66562 Special Port Plan 15979 TRTMT dev inter 31920 Isodose Complex 18708 Isodose simple 53855 Resp Motion Mgmt Simulation 03471 Placement of Fiducial Markers 54826 Electronically Signed By: Ravi Mann MD, HILARIOR 05/21/2025 3:45 PM
== END 2025-06-19 23:59 | disposition home or self-care (01) ==
LOC: SCTC 07:40
PROVIDERS: PCP Internal Medicine; Referring Provider Internal Medicine; Visit Provider Radiology Therapeutic Radiology
DX: Z51.0 Encounter for antineoplastic radiation therapy (principal); C50.312 Malignant neoplasm of lower-inner quadrant of left female breast; Z17.0 Estrogen receptor positive status [ER+]; Z17.22 Progesterone receptor negative status; Z17.32 Human epidermal growth factor receptor 2 negative status; Z90.12 Acquired absence of left breast and nipple; Z79.811 Long term (current) use of aromatase inhibitors
CPT/HCPCS: 77014; 77280; 77290; 77295; 77300; 77334; 77336; 77387; 77412; 77417; 99213; G0463